=== PATIENT | male | born 1945 | race Caucasian/White ===

== ENCOUNTER 2017-09-11 20:33 | Inpatient (IN) | payer OTHER, BC ==
[~2017-09-11] VITALS: Ht 170.2 cm; Wt 74.5 kg
[~2017-09-11 20:33] MED LIST: ADVAIR HFA120 INHALA IH; ALPRAZOLAM0.25 M2 PO; Aspirin Chewable PO; BAYER CHEWABLE81 MG PO; BENICAR HCT 401 EAC1 PO; BROVANA IH; Colace PO; DUONEB 2.5-0.5 M3 ML AEROSOL; Habitrol,Nicoderm CQ TD; LEVOFLOXACIN750 MG PO; LO-DOSE ASPIRIN81 M2 PO; LOSARTAN POTAS100 MG PO; MICARDIS HCT PO; PLETAL100 MG PO; PREDNISONE10 MG PO; PROAIR HFA8.5 GM IH; PROVENTIL,2.5 MG/0.5 IH; Percocet 5/325,Endoc PO; Pletal PO; SPIRIVA1 INHALATI IH; SYMBICORT60 INHALAT IH; TRILIPIX135 MG PO; Trilipix PO; ZOCOR40 MG PO; ZOCOR80 MG PO
[2017-09-11 21:02] LABS: BASOPHIL COUNT 0.1 K/uL (0-0.1); EOSINOPHIL (%) 6.9 % (0-5); EOSINOPHIL COUNT 0.5 K/uL (0-0.3); HEMATOCRIT 42.2 % (38.0-50.0); IMMATURE GRANULOCYTE (%) 0.3 % (0.0-0.7); INSTRUMENT ABS NEUTROPHIL CT 4.1 K/uL; LYMPHOCYTE COUNT 1.8 K/uL (1.0-2.8); MCH 30.1 PG (29.0-34.0); MCHC 33.6 G/DL (30.0-36.0); MCV 89.6 FL (86-99); MEAN PLAT.VOLUME 9.5 uM^3 (9.0-12.4); MONOCYTE (%) 7.2 % (3-12); MONOCYTE COUNT 0.5 K/uL (0-0.8); NEUTROPHIL (%) 58.8 % (45-76); NEUTROPHIL COUNT 4.1 K/uL (1.8-6.4); PLATELET COUNT 289 K/uL (156-360); RBC DIS.WIDTH-CV 13.5 % (11.8-14.6); RBC DIS.WIDTH-SD 44.2 % (39-53); RED BLOOD COUNT 4.71 M/uL (4.00-5.50); WHITE BLOOD COUNT 6.9 K/uL (4.1-10.2)
[2017-09-11 21:13] LABS: CHLORIDE 107 mEq/L (99-109); POTASSIUM 3.8 mEq/L (3.7-5.4); SODIUM 138 mEq/L (136-147)
[2017-09-11 21:15] LABS: GLUCOSE 157 mg/dL (70-99)
[2017-09-11 21:16] LABS: ANION GAP 8 MEQ/L (2-14)
[2017-09-11 21:17] LABS: TOTAL BILIRUBIN 0.3 mg/dL (0.0-1.0)
[2017-09-11 21:18] LABS: ALKALINE PHOSPHATASE 75 IU/L (3-129)
[2017-09-11 21:19] LABS: GFR ESTIMATE (CALCULATED) > 59 mL/min/ (58.99-99999)
[2017-09-11 21:20] LABS: UREA NITROGEN (BUN) 11 mg/dL (9-23)
[2017-09-11 21:22] LABS: LIPASE 31 U/L (1.0-51.0)
[2017-09-11 21:29] LABS: TROP-I INTERPRETATION NEGATIVE; TROPONIN-I < 0.01 ng/mL (0.0-0.30)
[2017-09-11 21:56] LABS: ADD MIUA? NO; BILIRUBIN NEGATIVE; BLOOD NEGATIVE; COLOR YELLOW ((YELLOW)); GLUCOSE (STRIP) NEGATIVE; KETONES NEGATIVE; LEUKOCYTES NEGATIVE; NITRITE NEGATIVE; PROTEIN (STRIP) NEGATIVE; SPECIFIC GRAVITY 1.011 (1.000-1.030); UROBILINOGEN 0.2 MG/DL (0.2-1.0)
[2017-09-11] MEDS ORDERED: ALBUTEROL2.5 MG/3 M IH (22:43)
[2017-09-11] MEDS ORDERED: GABAPENTIN300 MG PO (22:43)
[2017-09-11] MEDS ORDERED: ATIVAN1 MG PO (22:43)
[2017-09-11] MEDS ORDERED: TRAMADOL HCL50 MG PO (22:44)
[2017-09-12 02:34] VITALS: BP 148/89
[2017-09-12 07:48] LABS: HEMATOCRIT 40.4 % (38.0-50.0); MCH 30.3 PG (29.0-34.0); MCHC 33.4 G/DL (30.0-36.0); MCV 90.8 FL (86-99); MEAN PLAT.VOLUME 10.1 uM^3 (9.0-12.4); PLATELET COUNT 282 K/uL (156-360); RBC DIS.WIDTH-CV 13.6 % (11.8-14.6); RBC DIS.WIDTH-SD 45.4 % (39-53); RED BLOOD COUNT 4.45 M/uL (4.00-5.50); WHITE BLOOD COUNT 5.8 K/uL (4.1-10.2)
[2017-09-12 07:54] LABS: ANION GAP 8 MEQ/L (2-14); CHLORIDE 106 MEQ/L (99-109); GFR ESTIMATE (CALCULATED) > 59 mL/min/ (58.99-99999); GLUCOSE 165 mg/dL (70-99); SAMPLE HEMOLYSIS CHECK 0; SAMPLE ICTERIC CHECK 0; SAMPLE LIPEMIA CHECK 0; SODIUM 138 MEQ/L (136-147); UREA NITROGEN (BUN) 12 mg/dL (9-23)
[2017-09-12 07:55] LABS: POTASSIUM 4.6 MEQ/L (3.7-5.4)
[2017-09-12 08:30] VITALS: BP 113/60
[2017-09-12 09:30] LABS: TROP-I INTERPRETATION NEGATIVE; TROPONIN-I < 0.01 ng/mL (0.0-0.30)
[2017-09-12 12:38] VITALS: BP 136/70
[2017-09-12 15:00] VITALS: BP 119/66
[2017-09-12 19:35] VITALS: BP 133/80
[2017-09-13 00:03] VITALS: BP 124/69
[2017-09-13 03:57] VITALS: BP 128/93
[2017-09-13 08:20] VITALS: BP 136/90
[2017-09-13 09:58] LABS: ANION GAP 12 MEQ/L (2-14); CHLORIDE 103 MEQ/L (99-109); GFR ESTIMATE (CALCULATED) 53 mL/min/ (58.99-99999); GLUCOSE 146 mg/dL (70-99); POTASSIUM 4.5 MEQ/L (3.7-5.4); SAMPLE HEMOLYSIS CHECK 0; SAMPLE ICTERIC CHECK 0; SAMPLE LIPEMIA CHECK 0; SODIUM 138 MEQ/L (136-147)
[2017-09-13 10:00] LABS: UREA NITROGEN (BUN) 30 mg/dL (9-23)
[2017-09-13 12:25] VITALS: BP 131/80
[2017-09-13 16:00] VITALS: BP 127/68
[2017-09-13 19:51] VITALS: BP 143/86
[2017-09-14] VITALS (7 sets, daily range): BP systolic 114–152; BP diastolic 69–85
[2017-09-14 10:50] LABS: HEMATOCRIT 42.9 % (38.0-50.0); MCH 30.2 PG (29.0-34.0); MCHC 33.6 G/DL (30.0-36.0); MCV 89.9 FL (86-99); MEAN PLAT.VOLUME 9.7 uM^3 (9.0-12.4); PLATELET COUNT 343 K/uL (156-360); RBC DIS.WIDTH-CV 14.2 % (11.8-14.6); RBC DIS.WIDTH-SD 46.5 % (39-53); RED BLOOD COUNT 4.77 M/uL (4.00-5.50); WHITE BLOOD COUNT 16.9 K/uL (4.1-10.2)
[2017-09-14 11:05] LABS: CHLORIDE 106 mEq/L (99-109); POTASSIUM 4.4 mEq/L (3.7-5.4); SODIUM 140 mEq/L (136-147)
[2017-09-14 11:08] LABS: ANION GAP 10 MEQ/L (2-14)
[2017-09-14 11:10] LABS: GFR ESTIMATE (CALCULATED) > 59 mL/min/ (58.99-99999)
[2017-09-14 11:11] LABS: GLUCOSE 87 mg/dL (70-99); UREA NITROGEN (BUN) 25 mg/dL (9-23)
[2017-09-15 04:29] VITALS: BP 127/60
[2017-09-15 08:20] VITALS: BP 133/81
[2017-09-15 12:09] VITALS: BP 139/84
[2017-09-15] MEDS ORDERED: PREDNISONE5 M1 PO (13:55)
[2017-09-15] MEDS ORDERED: FAMOTIDINE20 MG PO (13:57)
== END 2017-09-15 15:56 | disposition home health service (06) | DRG 189 ==
LOC: EME → EDBD 20:33 → EME 20:33 → 3EAST 22:38 → EDOF 22:38 → ENRESERV 22:41 → 3EAST 09-12 02:17
PROVIDERS: Emergency Medicine; Hospitalist; Physician Assistant
DX: J96.21 Acute and chronic respiratory failure with hypoxia (principal); J44.0 Chronic obstructive pulmonary disease with (acute) lower respiratory infection; J20.9 Acute bronchitis, unspecified; J44.1 Chronic obstructive pulmonary disease with (acute) exacerbation; I10 Essential (primary) hypertension; E78.5 Hyperlipidemia, unspecified; I25.10 Atherosclerotic heart disease of native coronary artery without angina pectoris; K80.10 Calculus of gallbladder with chronic cholecystitis without obstruction; I73.9 Peripheral vascular disease, unspecified; Z99.81 Dependence on supplemental oxygen; I25.2 Old myocardial infarction; Z89.611 Acquired absence of right leg above knee; Z95.810 Presence of automatic (implantable) cardiac defibrillator; Z79.51 Long term (current) use of inhaled steroids; Z79.82 Long term (current) use of aspirin; Z87.891 Personal history of nicotine dependence
CPT/HCPCS: 71010; 71275; 74177; 78226; 80048; 80053; 81003; 83690; 83880; 84484; 85025; 85027; 87070; 87205; 93005; 94640; 94640 76; 94667; 94668; 94760; 94799; 99202; 99281; 99285; A9537; J0696; J1650; J2930; J7512; J7644

== ENCOUNTER 2017-10-28 10:20 | Day surgery (SDC) | payer OTHER, BC ==
[~2017-10-28] VITALS: Ht 167.6 cm; Wt 76.5 kg
[~2017-10-28 10:20] MED LIST changes: +ALBUTEROL2.5 MG/3 M IH; +ATIVAN1 MG PO; +FAMOTIDINE20 MG PO; +GABAPENTIN300 MG PO; +PREDNISONE5 M1 PO; +TRAMADOL HCL50 MG PO
[2017-10-28 13:45] VITALS: BP 142/85
[2017-10-28 18:17] VITALS: BP 129/78
[2017-10-28 20:53] VITALS: BP 118/77
[2017-10-29 00:39] VITALS: BP 130/70
[2017-10-29 05:10] VITALS: BP 122/75
[2017-10-29 05:39] LABS: BASOPHIL (%) 0.5 % (0-1); EOSINOPHIL COUNT 0.2 K/uL (0-0.3); HEMATOCRIT 37.5 % (38.0-50.0); IMMATURE GRANULOCYTE (%) 0.3 % (0.0-0.7); LYMPHOCYTE (%) 28.2 % (15-42); LYMPHOCYTE COUNT 1.9 K/uL (1.0-2.8); MCH 29.8 PG (29.0-34.0); MCHC 32.8 G/DL (30.0-36.0); MCV 90.8 FL (86-99); MONOCYTE (%) 8.9 % (3-12); MONOCYTE COUNT 0.6 K/uL (0-0.8); NEUTROPHIL (%) 59.1 % (45-76); NEUTROPHIL COUNT 3.9 K/uL (1.8-6.4); PLATELET COUNT 328 K/uL (156-360); RBC DIS.WIDTH-CV 13.5 % (11.8-14.6); RBC DIS.WIDTH-SD 44.7 % (39-53); RED BLOOD COUNT 4.13 M/uL (4.00-5.50); WHITE BLOOD COUNT 6.6 K/uL (4.1-10.2)
[2017-10-29 05:42] LABS: HEMOGLOBIN 12.3 G/DL (12.5-16.6)
[2017-10-29 06:01] LABS: CHLORIDE 109 MEQ/L (99-109); CREATININE 1.1 MG/DL (0.6-1.3); GFR ESTIMATE (CALCULATED) > 59 mL/min/ (58.99-99999); GLUCOSE 98 mg/dL (70-99); SODIUM 142 MEQ/L (136-147); UREA NITROGEN (BUN) 10 mg/dL (9-23)
[2017-10-29 08:45] VITALS: BP 123/73
[2017-10-29 11:30] VITALS: BP 125/72
[2017-10-29 15:08] VITALS: BP 110/82
[2017-10-29] MEDS ORDERED: CLOPIDOGREL75 MG PO (16:52)
== END 2017-10-29 17:43 | disposition home or self-care (01) ==
LOC: CATH 10:20 → 4EAST 13:00 → 2SOUTH 13:00 → ENRESERV 13:27 → 4EAST 15:53 → ENPENDDIS 10-29 → 4EAST 10-29 17:43
PROVIDERS: Internal Medicine Cardiovascular Disease
DX: I25.10 Atherosclerotic heart disease of native coronary artery without angina pectoris (principal); I73.9 Peripheral vascular disease, unspecified; J44.9 Chronic obstructive pulmonary disease, unspecified; Z99.81 Dependence on supplemental oxygen; I10 Essential (primary) hypertension; E78.5 Hyperlipidemia, unspecified; Z79.82 Long term (current) use of aspirin; Z86.718 Personal history of other venous thrombosis and embolism; Z89.611 Acquired absence of right leg above knee
CPT/HCPCS: 80048; 85025; 85347; 94640; 94640 76; 94799; 99202; C1725; C1769; C1874; C1887; G0378; J1644; J2250; J3010

== ENCOUNTER 2018-03-31 11:27 | Day surgery (SDC) | payer OTHER, BC ==
[~2018-03-31] VITALS: Ht 167.6 cm; Wt 77.5 kg
[~2018-03-31 11:27] MED LIST changes: +CARTIA XT240 MG PO; +CLOPIDOGREL75 MG PO; +CRESTOR20 MG PO; +HEARTBURN PREVE20 MG PO; +PLAVIX75 MG PO
[2018-03-31 12:05] VITALS: BP 146/90
[2018-03-31 18:53] VITALS: BP 158/96
[2018-03-31 19:40] VITALS: BP 157/93
[2018-03-31 23:45] VITALS: BP 143/87
[2018-04-01 05:16] VITALS: BP 126/81
[2018-04-01 07:56] VITALS: BP 164/97
[2018-04-01 11:04] VITALS: BP 153/88
[2018-04-01 16:18] VITALS: BP 151/96
[2018-04-01] MEDS ORDERED: PERCOCET 5/31 TABLET PO (19:54)
== END 2018-04-01 20:32 | disposition home or self-care (01) ==
LOC: SDC 11:27 → 2SOUTH 16:45 → 3EAST 16:45 → ENRESERV 17:04 → 3EAST 18:02
DX: K80.10 Calculus of gallbladder with chronic cholecystitis without obstruction (principal); K82.8 Other specified diseases of gallbladder; K31.9 Disease of stomach and duodenum, unspecified; I10 Essential (primary) hypertension; E78.4 Other hyperlipidemia; J44.9 Chronic obstructive pulmonary disease, unspecified; I25.2 Old myocardial infarction; Z79.02 Long term (current) use of antithrombotics/antiplatelets; Z79.82 Long term (current) use of aspirin
CPT/HCPCS: 74300; 88304; 88305; 94640; 94640 76; 94799; 99202; G0378; J0131; J1100; J2405; J3010; J7120; J7643; S0020; S0074

== ENCOUNTER 2018-04-08 22:54 | Inpatient (IN) | payer OTHER, BC ==
[~2018-04-08] VITALS: Ht 167.6 cm; Wt 84.6 kg
[~2018-04-08 22:54] MED LIST changes: -CRESTOR20 MG PO; +CRESTOR40 MG PO; +LOSARTAN POTASS50 MG PO; +PERCOCET 5/31 TABLET PO
[2018-04-08 23:30] LABS: HEMATOCRIT 33.4 % (38.0-50.0); HEMOGLOBIN 11.9 G/DL (12.5-16.6); MCHC 35.6 G/DL (30.0-36.0); MCV 84.1 FL (86-99); PLATELET COUNT 293 K/uL (156-360); RBC DIS.WIDTH-CV 13.7 % (11.8-14.6); RBC DIS.WIDTH-SD 42.4 % (39-53); RED BLOOD COUNT 3.97 M/uL (4.00-5.50); WHITE BLOOD COUNT 9.5 K/uL (4.1-10.2)
[2018-04-08 23:43] LABS: ALBUMIN 3.8 g/dL (3.2-4.8); CHLORIDE 92 mEq/L (99-109); POTASSIUM 4.1 mEq/L (3.7-5.4)
[2018-04-08 23:44] LABS: SODIUM 128 mEq/L (136-147)
[2018-04-08 23:46] LABS: GLUCOSE 133 mg/dL (70-99); TOTAL PROTEIN 6.6 g/dL (6.4-8.3)
[2018-04-08 23:48] LABS: TOTAL BILIRUBIN 0.6 mg/dL (0.0-1.0)
[2018-04-08 23:49] LABS: ALKALINE PHOSPHATASE 87 IU/L (3-129); CREATININE 1.7 mg/dL (0.6-1.3); GFR ESTIMATE (CALCULATED) 43 mL/min/ (58.99-99999); INTER. NORMALIZED RATIO 1.1
[2018-04-08 23:50] LABS: UREA NITROGEN (BUN) 22 mg/dL (9-23)
[2018-04-08 23:51] LABS: AST (GOT) 89 IU/L (2-34); PTT 26.7 SEC (25-37)
[2018-04-08 23:52] LABS: ALT (GPT) 36 IU/L (3-49)
[2018-04-08 23:53] LABS: LIPASE 32 U/L (1.0-51.0)
[2018-04-08 23:58] LABS: TROP-I INTERPRETATION NEGATIVE; TROPONIN-I 0.05 ng/mL (0.0-0.30)
[2018-04-09] VITALS (7 sets, daily range): BP systolic 121–140; BP diastolic 59–66
[2018-04-09] MEDS ORDERED: SYMBICORT60 INHALAT IH (01:40)
[2018-04-09 02:07] LABS: APPEARANCE CLEAR ((CLEAR)); BILIRUBIN NEGATIVE; BLOOD MODERATE; COLOR YELLOW ((YELLOW)); GLUCOSE (STRIP) NEGATIVE; KETONES NEGATIVE; LEUKOCYTES NEGATIVE; NITRITE NEGATIVE; PROTEIN (STRIP) NEGATIVE; UROBILINOGEN 0.2 MG/DL (0.2-1.0)
[2018-04-09 02:12] LABS: BACTERIA NONE SEEN /HPF; EPITHELIAL CELLS NONE SEEN /HPF; MUCUS NONE SEEN /LPF; RED BLOOD CELLS 0-5 /HPF (0-5); UCUL ADDED? NO; WHITE BLOOD CELLS 0-5 /HPF (0-5)
[2018-04-09 06:41] LABS: URIC ACID 5.3 mg/dL (3.1-9.2)
[2018-04-09 06:47] LABS: HEMOGLOBIN 10.5 G/DL (12.5-16.6); MCH 29.1 PG (29.0-34.0); MCHC 33.9 G/DL (30.0-36.0); MCV 85.9 FL (86-99); PLATELET COUNT 265 K/uL (156-360); RBC DIS.WIDTH-CV 14.2 % (11.8-14.6); RBC DIS.WIDTH-SD 44.5 % (39-53); RED BLOOD COUNT 3.61 M/uL (4.00-5.50); WHITE BLOOD COUNT 6.1 K/uL (4.1-10.2)
[2018-04-09 07:11] LABS: ALBUMIN 3.2 G/DL (3.2-4.8); CHLORIDE 101 MEQ/L (99-109); CREATININE 1.4 MG/DL (0.6-1.3); GFR ESTIMATE (CALCULATED) 53 mL/min/ (58.99-99999); GLUCOSE 116 mg/dL (70-99); PHOSPHORUS 2.4 mg/dL (2.5-4.9); POTASSIUM 4.2 MEQ/L (3.7-5.4); UREA NITROGEN (BUN) 19 mg/dL (9-23)
[2018-04-09 07:13] LABS: SODIUM 136 MEQ/L (136-147)
[2018-04-09 08:23] LABS: THYROTROPIN (TSH) 0.77 MIU/L (0.4-5.5)
[2018-04-10 04:00] VITALS: BP 153/74
[2018-04-10 08:13] LABS: HEMATOCRIT 27.1 % (38.0-50.0); MCH 29.2 PG (29.0-34.0); MCHC 33.2 G/DL (30.0-36.0); PLATELET COUNT 250 K/uL (156-360); RBC DIS.WIDTH-CV 14.6 % (11.8-14.6); RBC DIS.WIDTH-SD 46.8 % (39-53); RED BLOOD COUNT 3.08 M/uL (4.00-5.50); WHITE BLOOD COUNT 6.8 K/uL (4.1-10.2)
[2018-04-10 08:29] VITALS: BP 127/78
[2018-04-10 08:37] LABS: CHLORIDE 104 MEQ/L (99-109); GFR ESTIMATE (CALCULATED) > 59 mL/min/ (58.99-99999); GLUCOSE 103 mg/dL (70-99); PHOSPHORUS 2.4 mg/dL (2.5-4.9); POTASSIUM 3.7 MEQ/L (3.7-5.4); SODIUM 136 MEQ/L (136-147); UREA NITROGEN (BUN) 16 mg/dL (9-23)
[2018-04-10 11:49] VITALS: BP 122/71
[2018-04-10 12:42] LABS: HEMOGLOBIN 9.2 G/DL (12.5-16.6); MCV 87.5 FL (86-99)
[2018-04-10 16:31] VITALS: BP 113/68
[2018-04-10 20:24] LABS: HEMATOCRIT 26.6 % (38.0-50.0); HEMOGLOBIN 8.9 G/DL (12.5-16.6); MCV 87.2 FL (86-99)
[2018-04-10 23:15] VITALS: BP 127/64
[2018-04-11 04:51] VITALS: BP 130/76
[2018-04-11 08:04] LABS: HEMATOCRIT 26.9 % (38.0-50.0); HEMOGLOBIN 8.7 G/DL (12.5-16.6); MCH 28.2 PG (29.0-34.0); MCHC 32.3 G/DL (30.0-36.0); MCV 87.1 FL (86-99); PLATELET COUNT 262 K/uL (156-360); RBC DIS.WIDTH-CV 14.3 % (11.8-14.6); RBC DIS.WIDTH-SD 45.2 % (39-53); RED BLOOD COUNT 3.09 M/uL (4.00-5.50); WHITE BLOOD COUNT 6.1 K/uL (4.1-10.2)
[2018-04-11 08:25] VITALS: BP 141/79
[2018-04-11 08:27] LABS: CHLORIDE 102 MEQ/L (99-109); CREATININE 0.9 MG/DL (0.6-1.3); GFR ESTIMATE (CALCULATED) > 59 mL/min/ (58.99-99999); GLUCOSE 106 mg/dL (70-99); POTASSIUM 3.6 MEQ/L (3.7-5.4); SODIUM 136 MEQ/L (136-147); UREA NITROGEN (BUN) 12 mg/dL (9-23)
[2018-04-11 12:19] VITALS: BP 137/77
== END 2018-04-11 14:09 | disposition home health service (06) | DRG 683 ==
LOC: EME → EDBD 22:54 → EME 22:54 → 3EAST 04-09 03:18 → EDOF 04-09 03:18 → ENRESERV 04-09 03:21 → 3EAST 04-09 04:11
PROVIDERS: Emergency Medicine; Hospitalist; Physician Assistant; Physician Assistant Medical
DX: N17.9 Acute kidney failure, unspecified (principal); E87.1 Hypo-osmolality and hyponatremia; R31.0 Gross hematuria; N40.1 Benign prostatic hyperplasia with lower urinary tract symptoms; N13.8 Other obstructive and reflux uropathy; N32.0 Bladder-neck obstruction; R33.9 Retention of urine, unspecified; J96.11 Chronic respiratory failure with hypoxia; Z99.81 Dependence on supplemental oxygen; C49.A2 Gastrointestinal stromal tumor of stomach; E83.39 Other disorders of phosphorus metabolism; E86.0 Dehydration; E87.70 Fluid overload, unspecified; J44.9 Chronic obstructive pulmonary disease, unspecified; N32.89 Other specified disorders of bladder; D64.9 Anemia, unspecified; I10 Essential (primary) hypertension; I89.0 Lymphedema, not elsewhere classified; E78.5 Hyperlipidemia, unspecified; I73.9 Peripheral vascular disease, unspecified; I25.10 Atherosclerotic heart disease of native coronary artery without angina pectoris; I25.2 Old myocardial infarction; K59.00 Constipation, unspecified; F41.9 Anxiety disorder, unspecified; Z87.891 Personal history of nicotine dependence; Z89.611 Acquired absence of right leg above knee; Z95.5 Presence of coronary angioplasty implant and graft
CPT/HCPCS: 74176; 80048; 80053; 80069; 81003; 82436; 83605; 83690; 83880; 83930; 84100; 84133; 84300; 84443; 84484; 84550; 85014; 85018; 85027; 85610; 85730; 87086; 93005; 93971; 94640; 94664; 94799; 99281; 99285; J1644; J2405; J7030

== ENCOUNTER 2018-05-17 10:36 | Inpatient (IN) | payer OTHER, BC ==
[2018-05-17] VITALS (8 sets, daily range): BP systolic 103–127; BP diastolic 58–72
[~2018-05-17] VITALS: Ht 165.1 cm; Wt 64.0 kg
[2018-05-17 11:25] LABS: INTER. NORMALIZED RATIO 1.3
[2018-05-17 11:27] LABS: CHLORIDE 106 mEq/L (99-109); POTASSIUM 3.2 mEq/L (3.7-5.4); SODIUM 139 mEq/L (136-147)
[2018-05-17 11:28] LABS: GLUCOSE 108 mg/dL (70-99)
[2018-05-17 11:32] LABS: CREATININE 0.9 mg/dL (0.6-1.3); GFR ESTIMATE (CALCULATED) > 59 mL/min/ (58.99-99999)
[2018-05-17 11:33] LABS: UREA NITROGEN (BUN) 8 mg/dL (9-23)
[2018-05-17 11:35] LABS: BASOPHIL (%) 0.4 % (0-1); EOSINOPHIL COUNT 0.6 K/uL (0-0.3); HEMATOCRIT 22.3 % (38.0-50.0); HEMOGLOBIN 6.4 G/DL (12.5-16.6); IMMATURE GRANULOCYTE (%) 0.4 % (0.0-0.7); LYMPHOCYTE (%) 22.4 % (15-42); LYMPHOCYTE COUNT 1.1 K/uL (1.0-2.8); MCH 21.8 PG (29.0-34.0); MCHC 28.7 G/DL (30.0-36.0); MCV 75.9 FL (86-99); MONOCYTE (%) 8.6 % (3-12); MONOCYTE COUNT 0.4 K/uL (0-0.8); NEUTROPHIL (%) 57.2 % (45-76); NEUTROPHIL COUNT 2.9 K/uL (1.8-6.4); PLATELET COUNT 562 K/uL (156-360); RBC DIS.WIDTH-CV 19.5 % (11.8-14.6); RBC DIS.WIDTH-SD 53.3 % (39-53); RED BLOOD COUNT 2.94 M/uL (4.00-5.50)
[2018-05-17] MEDS ORDERED: FLOMAX0.4 MG PO (12:13)
[2018-05-17] MEDS ORDERED: PEPCID20 MG PO (12:13)
[2018-05-17] MEDS ORDERED: PROSCAR5 MG PO (12:13)
[2018-05-18] VITALS (10 sets, daily range): BP systolic 104–129; BP diastolic 69–76
[2018-05-18 05:56] LABS: HEMATOCRIT 24.5 % (38.0-50.0); HEMOGLOBIN 7.5 G/DL (12.5-16.6); MCH 23.9 PG (29.0-34.0); MCHC 30.6 G/DL (30.0-36.0); PLATELET COUNT 440 K/uL (156-360); RBC DIS.WIDTH-CV 19.4 % (11.8-14.6); RBC DIS.WIDTH-SD 55.1 % (39-53); RED BLOOD COUNT 3.14 M/uL (4.00-5.50); WHITE BLOOD COUNT 4.9 K/uL (4.1-10.2)
[2018-05-19] VITALS (7 sets, daily range): BP systolic 110–134; BP diastolic 73–83
[2018-05-19 06:45] LABS: MCHC 31.3 G/DL (30.0-36.0); MCV 79.9 FL (86-99); PLATELET COUNT 398 K/uL (156-360); RBC DIS.WIDTH-CV 18.3 % (11.8-14.6); RBC DIS.WIDTH-SD 53.4 % (39-53); WHITE BLOOD COUNT 5.3 K/uL (4.1-10.2)
[2018-05-19 06:50] LABS: HEMOGLOBIN 9.7 G/DL (12.5-16.6); RED BLOOD COUNT 3.88 M/uL (4.00-5.50)
[2018-05-19 06:55] LABS: CHLORIDE 110 MEQ/L (99-109); CREATININE 0.7 MG/DL (0.6-1.3); GFR ESTIMATE (CALCULATED) > 59 mL/min/ (58.99-99999); GLUCOSE 100 mg/dL (70-99); SODIUM 139 MEQ/L (136-147); UREA NITROGEN (BUN) 6 mg/dL (9-23)
[2018-05-19 07:01] LABS: POTASSIUM 3.9 MEQ/L (3.7-5.4)
== END 2018-05-19 14:22 | disposition home health service (06) | DRG 812 ==
LOC: EME 10:36 → 5SOUTH 12:05 → EDOF 12:05 → ENRESERV 12:07 → 5SOUTH 19:17 → ENPENDDIS 05-19 13:11 → 5SOUTH 05-19 14:22
PROVIDERS: Emergency Medicine; Internal Medicine
DX: D62 Acute posthemorrhagic anemia (principal); K92.2 Gastrointestinal hemorrhage, unspecified; J96.11 Chronic respiratory failure with hypoxia; N13.8 Other obstructive and reflux uropathy; R31.0 Gross hematuria; I11.9 Hypertensive heart disease without heart failure; I25.10 Atherosclerotic heart disease of native coronary artery without angina pectoris; E78.5 Hyperlipidemia, unspecified; I27.20 Pulmonary hypertension, unspecified; I73.9 Peripheral vascular disease, unspecified; J44.9 Chronic obstructive pulmonary disease, unspecified; N32.0 Bladder-neck obstruction; N40.1 Benign prostatic hyperplasia with lower urinary tract symptoms; R33.8 Other retention of urine; F41.9 Anxiety disorder, unspecified; R19.5 Other fecal abnormalities; Z99.81 Dependence on supplemental oxygen; Z79.02 Long term (current) use of antithrombotics/antiplatelets; Z86.718 Personal history of other venous thrombosis and embolism; Z87.891 Personal history of nicotine dependence; Z89.611 Acquired absence of right leg above knee; Z79.51 Long term (current) use of inhaled steroids; Z79.82 Long term (current) use of aspirin; Z95.5 Presence of coronary angioplasty implant and graft; Z88.5 Allergy status to narcotic agent; Z98.62 Peripheral vascular angioplasty status; Z80.7 Family history of other malignant neoplasms of lymphoid, hematopoietic and related tissues; Z82.49 Family history of ischemic heart disease and other diseases of the circulatory system; Z82.5 Family history of asthma and other chronic lower respiratory diseases
CPT/HCPCS: 36415; 71045; 80048; 80053; 82728; 83970 GA; 84100; 85025; 85027; 85046; 85610; 86850; 86900; 86901; 86920; 94640; 94799; 99281; 99285; C9113; P9016